=== PATIENT | female | born 1980 | race African-American/Black ===

== ENCOUNTER 2020-01-27 17:17 | Emergency (ER) | payer BC ==
[~2020-01-27] VITALS: Ht 160 cm; Wt 61.2 kg
[~2020-01-27 17:17] MED LIST: ACETAMINOPHEN-1 EAC1; BACTRIM DS TAB1 EACH PO; CIPRO500 M1 PO; CIPROFLOXACIN500 M1 PO; DOXYCYCLINE 10100 MG PO; EXCEDRIN CAPLE1 EACH PO; FIORICET 50-321 EACH PO; FLOMAX0.4 MG PO; IBUPROFEN 200200 M1 PO; IBUPROFEN 600600 M1 PO; IBUPROFEN200 M2 PO; IMODIUM ADVANC1 EAC1 PO; KEFLEX500 MG PO; NAPROSYN500 MG PO; NOHOMEMEDICATIONS; NORCO 5-325 TA1 EACH PO; PERCOCET 5-3251 EACH PO; TRAMADOL 50 MG50 MG PO; ZOFRAN4 MG PO
[2020-01-27 17:51] LABS: URINE BILIRUBIN NEGATIVE (Negative); URINE BLOOD 3+ (Negative); URINE CLARITY CLEAR; URINE GLUCOSE-RANDOM* NEGATIVE (Negative); URINE KETONES NEGATIVE (Negative); URINE LEUKOCYTES-REFLEX NEGATIVE (Negative); URINE NITRITE-REFLEX NEGATIVE (Negative); URINE PROTEIN (DIPSTICK) NEGATIVE (Negative); URINE SPECIFIC GRAVITY <= 1.005 (1.005-1.035); URINE UROBILINOGEN 0.2 E.U./dl (0.2-1.0)
[2020-01-27 17:53] LABS: URINE COLOR PINK
[2020-01-27 18:01] LABS: URINE RBC >20 Many /HPF (0-2)
[2020-01-27 18:02] LABS: BACTERIA-REFLEX 1-9 Few /HPF (None Seen); CASTS None Seen /LPF (None Seen); CRYSTALS None Seen /LPF (None Seen); SQUAMOUS 0-3 Few /LPF (0-3); URINE WBC-REFLEX None Seen /HPF (0-5)
[2020-01-27 18:26] LABS: ABSOLUTE NEUTROPHILS 2.1 thou/uL (1.4-8.2); BASOPHILS 0.6 % (0.0-2.0); EOSINOPHILS 1.5 % (0.0-3.0); HEMATOCRIT 37.8 % (37.0-47.0); HEMOGLOBIN 12.4 gm/dL (12.0-15.0); LYMPHOCYTES 35.1 % (24.0-44.0); MCH 28.8 pg (26.0-34.0); MCHC 32.7 g/dL (28.0-37.0); MONOCYTES 7.4 % (1.0-8.0); PLATELET COUNT 284 thou/uL (150-400); POLYS 55.4 % (36.0-66.0); RBC 4.29 mil/uL (4.20-5.00); RDW 13.5 % (10.5-14.5); WBC 4.5 thou/uL (4.0-11.0)
[2020-01-27 18:32] LABS: ANION GAP 8 mmol/L (7-16); BUN 11 mg/dL (7-18); CHLORIDE 101 mmol/L (98-107); CO2 24 mmol/L (21-32); CREATININE 0.7 mg/dL (0.6-1.0); GLUCOSE 89 mg/dL (74-106); SODIUM 133 mmol/L (136-145)
[2020-01-27 18:34] LABS: POTASSIUM 3.8 mmol/L (3.5-5.1)
[2020-01-27 18:41] LABS: TROPONIN-I <0.06 ng/mL (<0.06)
[2020-01-27 18:52] VITALS: BP 143/90
--- NOTE | 2020-01-28 08:54 | EKG ---
[facility] [address] [place] [address] ELECTROCARDIOGRAM REPORT Name: DEVIN VASQUEZ Room #: [facility]#: [id number] Admission: 01/27/20 Attend Phys: Discharge: 01/27/20 Date of : 82 Report #: [id number] THIS REPORT FOR: cc: Angelica Landry MD, Karla L. MD Lundgren,Isaiah Armenta MD 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 /EPI
== END 2020-01-27 18:55 | disposition home or self-care (01) ==
LOC: ER 17:17
PROVIDERS: Nurse Practitioner
DX: I10 Essential (primary) hypertension (principal); F17.210 Nicotine dependence, cigarettes, uncomplicated; Z79.1 Long term (current) use of non-steroidal anti-inflammatories (NSAID)

== ENCOUNTER 2020-11-26 08:32 | Emergency (ER) | payer BC ==
[~2020-11-26] VITALS: Ht 162.6 cm; Wt 59.0 kg
[2020-11-26 09:14] LABS: URINE BILIRUBIN NEGATIVE (Negative); URINE BLOOD 3+ (Negative); URINE COLOR YELLOW; URINE GLUCOSE-RANDOM* NEGATIVE (Negative); URINE KETONES NEGATIVE (Negative); URINE LEUKOCYTES-REFLEX NEGATIVE (Negative); URINE NITRITE-REFLEX NEGATIVE (Negative); URINE PROTEIN (DIPSTICK) NEGATIVE (Negative); URINE UROBILINOGEN 0.2 E.U./dl (0.2-1.0)
[2020-11-26 09:19] LABS: URINE CLARITY HAZY
[2020-11-26 09:37] VITALS: BP 149/94
[2020-11-26 09:48] LABS: CASTS None Seen /LPF (None Seen); SQUAMOUS >10 Many /LPF (0-3)
[2020-11-26 09:49] LABS: BACTERIA-REFLEX 1-9 Few /HPF (None Seen); CRYSTALS None Seen /LPF (None Seen); MUCUS >6 Heavy strn/LPF (None Seen); URINE RBC >20 Many /HPF (NONE SEEN); URINE WBC-REFLEX 0-5 Rare /HPF (0-5)
== END 2020-11-26 09:37 | disposition home or self-care (01) ==
LOC: ER 08:32
PROVIDERS: Student in an Organized Health Care Education/Training Program
DX: R31.9 Hematuria, unspecified (principal); N20.0 Calculus of kidney; F17.210 Nicotine dependence, cigarettes, uncomplicated; Z87.442 Personal history of urinary calculi; Z79.1 Long term (current) use of non-steroidal anti-inflammatories (NSAID)